=== PATIENT | female | born 1970 | race Caucasian/White ===

== ENCOUNTER 2016-12-23 07:56 | Emergency (ER) | payer BC, MEDICAID ==
[~2016-12-23] VITALS: Ht 170.2 cm; Wt 60.0 kg
[~2016-12-23 07:56] MED LIST: GEMF600T3 PO; INSU3CAR SQ; LABE100T PO; METF1000 PO
[2016-12-23] MEDS ORDERED: SIMV-260 PO (08:10)
[2016-12-23] MEDS ORDERED: FERR-89 PO (08:10)
[2016-12-23] MEDS ORDERED: GLYB5 PO (08:10)
[2016-12-23 08:16] LABS: GLUCOSE,POINT OF CARE 379 MG/DL (70-110)
[2016-12-23] MEDS ORDERED: KETOROLAC TROMETHAMINE 60 MG/2 ML VIAL IM ONE (10:45)
[2016-12-23] MEDS ORDERED: OxyCODONE HCL/ACETAMINOPHEN 10-325 MG TABLET PO ONE (10:45)
[2016-12-23 12:51] VITALS: BP 139/80
== END 2016-12-23 12:59 | disposition home or self-care (01) ==
LOC: EMS 07:58
DX: S43.401A Unspecified sprain of right shoulder joint, initial encounter (principal); R30.0 Dysuria; E11.9 Type 2 diabetes mellitus without complications; I10 Essential (primary) hypertension; F17.210 Nicotine dependence, cigarettes, uncomplicated; W19.XXXA Unspecified fall, initial encounter; Y93.89 Activity, other specified; Y92.89 Other specified places as the place of occurrence of the external cause; Y99.8 Other external cause status
CPT/HCPCS: 29105; 81002; 82962; 96372; 99283; J1885

== ENCOUNTER 2019-07-20 11:23 | Emergency (ER) | payer MEDICAID ==
[~2019-07-20] VITALS: Ht 170.2 cm; Wt 70.5 kg
[~2019-07-20 11:23] MED LIST changes: +FERR-89 PO; -GEMF600T3 PO; +GLYB5 PO; -INSU3CAR SQ; -LABE100T PO; +SIMV-260 PO
[2019-07-20 11:50] VITALS: BP 121/85
[2019-07-20 11:56] LABS: GLUCOSE,POINT OF CARE 309 MG/DL (70-110)
[2019-07-20] MEDS ORDERED: DiphenhydrAMINE HCL 25 MG CAPSULE PO ONE (12:30)
[2019-07-20] MEDS ORDERED: DEXAMETHASONE 4 MG TABLET PO ONE (12:30)
[2019-07-20] MEDS ORDERED: PRAMOXINE HCL/BENZYL ALCOHOL 1% 35 GM GEL TP ONE (12:30)
== END 2019-07-20 13:23 | disposition home or self-care (01) ==
LOC: EMS 11:24
DX: R21 Rash and other nonspecific skin eruption (principal); E11.9 Type 2 diabetes mellitus without complications; I10 Essential (primary) hypertension; F17.210 Nicotine dependence, cigarettes, uncomplicated; Z85.828 Personal history of other malignant neoplasm of skin; Z79.899 Other long term (current) drug therapy
CPT/HCPCS: 82962; 99284; J8540

== ENCOUNTER 2019-08-14 03:37 | Emergency (ER) | payer MEDICAID ==
[~2019-08-14] VITALS: Ht 170.2 cm; Wt 70.5 kg
[2019-08-14 03:41] VITALS: BP 148/108
== END 2019-08-14 04:30 | disposition left against medical advice (07) ==
LOC: EMS 03:37
DX: M25.531 Pain in right wrist (principal); Z53.21 Procedure and treatment not carried out due to patient leaving prior to being seen by health care provider